=== PATIENT | female | born 1965 | race Asian ===

== ENCOUNTER 2021-12-18 09:20 | Outpatient (CLI) | payer BC | END 2021-12-18 09:21 | disposition home or self-care (01) | LOC: CSHULT 09:20 | PROVIDERS: ATTEND Internal Medicine Gastroenterology | DX: K21.9 Gastro-esophageal reflux disease without esophagitis (principal); R05.9 Cough, unspecified; R19.4 Change in bowel habit; R13.12 Dysphagia, oropharyngeal phase | CPT/HCPCS: 76705 ==